=== PATIENT | male | born 1950 | race Caucasian/White ===

== ENCOUNTER 2022-01-28 07:40 | Inpatient (IN) ==
[~2022-01-28 07:40] MED LIST: Famotidine 20 MG/2 ML VIAL IVP ONE; Ringers Solution, Lactated 1,000 ML IVC ONE
[2022-01-28] MEDS ORDERED: Acetaminophen IV 1,000 MG/100 ML BAG IVPB ONE (07:47)
[2022-01-28] MEDS ORDERED: CeFAZolin Syr 2,000MG/20 ML 2,000 MG/20 ML SYRINGE IVPB ONE (08:03)
[2022-01-28] MEDS ORDERED: Ondansetron 4 MG/2 ML VIAL IVP PRN (08:24)
[2022-01-28] MEDS ORDERED: Naloxone 0.4 MG/ML INJ IVP PRN ×2 (08:24→12:02)
[2022-01-28] MEDS ORDERED: Albuterol 2.5 MG/3 ML NEBULIZER IH PRN (08:24)
[2022-01-28] MEDS ORDERED: Nitroglycerin 0.4 MG TAB.SUBL SL PRN (08:24)
[2022-01-28] MEDS ORDERED: *HR* FentaNYL (PF) 100 MCG/2 ML VIAL ONE (08:34)
[2022-01-28] MEDS ORDERED: *HR* Propofol 200 MG/20 ML VIAL IVP ONE ×2 (08:34→10:25)
[2022-01-28] MEDS ORDERED: Ondansetron 4 MG/2 ML VIAL ONE (08:35)
[2022-01-28] MEDS ORDERED: Lidocaine -MPF 2% 5 ML VIAL ONE (08:35)
[2022-01-28] MEDS ORDERED: *HR* Rocuronium Bromide 50 MG/5 ML VIAL ONE ×2 (08:35→09:19)
[2022-01-28] MEDS ORDERED: *HR* Vasopressin 20 UNIT/ML VIAL ONE (08:40)
[2022-01-28] MEDS ORDERED: Sugammadex Sodium 200 MG/2 ML VIAL IV ONE (09:48)
[2022-01-28] MEDS ORDERED: *HR* HYDROMORPHONE 2 MG/ML VIAL ONE (10:27)
[2022-01-28] MEDS: *HR* FentaNYL (PF) 100 MCG/2 ML VIAL IVP PRN ×2 (11:06→11:19)
[2022-01-28] MEDS: 0.9 % Sodium Chloride 1,000 ML IVC SCH (12:38)
[2022-01-28] MEDS: Ketorolac 30 MG/ML VIAL IVP SCH ×2 (12:38→18:41)
[2022-01-28] MEDS: *HR* HYDROcodone/Acet 5/325 mg TABLET PO PRN ×2 (13:36→19:54)
[2022-01-28] MEDS: Gabapentin 300 MG CAPSULE PO SCH ×2 (14:27→19:53)
[2022-01-28] MEDS: *HR* Heparin 5,000 UNIT/ML VIAL SQ SCH ×2 (14:27→21:44)
[2022-01-28] MEDS ORDERED: Amiodarone Premix 150 MG/100 ML BAG IVPB ONE (15:40)
[2022-01-28] MEDS: Ipratropium/Albuterol Neb 3 ML IH SCH ×3 (15:58→20:47)
[2022-01-28] MEDS ORDERED: Amiodarone Premix 360 MG/200 ML BAG IVC ONE (16:00)
[2022-01-28] MEDS: Famotidine 20 MG TABLET PO SCH (19:53)
[2022-01-28] MEDS: Sennosides/Docusate Sodium TABLET PO SCH (19:54)
[2022-01-28] MEDS: Amiodarone Premix 360 MG/200 ML BAG IVC SCH (21:44)
[2022-01-29] MEDS: Ketorolac 30 MG/ML VIAL IVP SCH ×5 (00:04→23:08)
[2022-01-29] MEDS: Ipratropium/Albuterol Neb 3 ML IH SCH ×7 (00:28→23:53)
[2022-01-29] MEDS: *HR* Heparin 5,000 UNIT/ML VIAL SQ SCH ×3 (05:07→20:27)
[2022-01-29] MEDS: 0.9 % Sodium Chloride 1,000 ML IVC SCH (05:07)
[2022-01-29 06:40] LABS: Mean Platelet Volume 11.6 fL (9.4-12.4); Red Cell Distribution Width 12.5 % (11.5-14.5)
[2022-01-29 06:42] LABS: Hematocrit 38.1 % (37.5-50.1); Hemoglobin 12.7 g/dL (12.9-16.9); Mean Corpuscular HGB Conc 33.3 g/dL (31.6-35.5); Mean Corpuscular Hemoglobin 31.4 pg (28.0-33.3); Mean Corpuscular Volume 94.1 fL (83.0-100.0); Red Blood Count 4.05 M/mcL (4.19-5.50); White Blood Count 9.2 K/mcL (4.3-11.1)
[2022-01-29 07:07] LABS: % Iron Saturation 15 % (20-55); BUN/Creatinine Ratio 20 (6-26); Blood Urea Nitrogen 17 mg/dL (8-23); Calcium 8.1 mg/dL (8.6-10.3); Carbon Dioxide 27 mEq/L (23-29); Chloride 104 mEq/L (98-107); Glucose 174 mg/dL (70-105); Iron 38 mcg/dL (65-175); Magnesium 1.8 mg/dL (1.6-2.6); Osmolality,Calculated 290 (280-300); Potassium 3.8 mEq/L (3.5-5.1); Sodium 137 mEq/L (136-145); Transferrin 187 mg/dL (203-362)
[2022-01-29] MEDS: Famotidine 20 MG TABLET PO SCH ×2 (09:00→20:27)
[2022-01-29] MEDS: Gabapentin 300 MG CAPSULE PO SCH ×3 (09:01→20:27)
[2022-01-29] MEDS: Sennosides/Docusate Sodium TABLET PO SCH ×2 (09:01→20:26)
[2022-01-29] MEDS: Amiodarone Premix 360 MG/200 ML BAG IVC SCH (10:00)
[2022-01-29] MEDS ORDERED: [UNRECOGNIZED DRUG - OTHER] IX ONE (10:45)
[2022-01-29] MEDS ORDERED: SODIUM CHLORIDE IX ONE (10:45)
[2022-01-29] MEDS ORDERED: TALC IX ONE (10:45)
[2022-01-29] MEDS ORDERED: LOK IX ONE (10:45)
[2022-01-29] MEDS: *HR* Amiodarone 200 MG TABLET PO SCH (11:16)
[2022-01-30 03:18] LABS: Hemoglobin 12.5 g/dL (12.9-16.9); Mean Platelet Volume 11.3 fL (9.4-12.4)
[2022-01-30 03:20] LABS: Hematocrit 37.4 % (37.5-50.1); Immature Platelets 8.5 % (1.1-6.1); Mean Corpuscular HGB Conc 33.4 g/dL (31.6-35.5); Mean Corpuscular Hemoglobin 31.6 pg (28.0-33.3); Mean Corpuscular Volume 94.4 fL (83.0-100.0); Red Blood Count 3.96 M/mcL (4.19-5.50); Red Cell Distribution Width 12.6 % (11.5-14.5); White Blood Count 6.9 K/mcL (4.3-11.1)
[2022-01-30 03:29] LABS: BUN/Creatinine Ratio 18 (6-26); Blood Urea Nitrogen 14 mg/dL (8-23); Carbon Dioxide 27 mEq/L (23-29); Chloride 106 mEq/L (98-107); Glucose 155 mg/dL (70-105); Magnesium 1.9 mg/dL (1.6-2.6); Osmolality,Calculated 290 (280-300); Potassium 4.5 mEq/L (3.5-5.1); Sodium 138 mEq/L (136-145)
[2022-01-30] MEDS: Ipratropium/Albuterol Neb 3 ML IH SCH ×6 (04:00→23:13)
[2022-01-30] MEDS: *HR* Heparin 5,000 UNIT/ML VIAL SQ SCH ×3 (05:12→20:19)
[2022-01-30] MEDS: Ketorolac 30 MG/ML VIAL IVP SCH ×3 (05:13→17:24)
[2022-01-30] MEDS: *HR* HYDROcodone/Acet 5/325 mg TABLET PO PRN ×2 (05:14→20:09)
[2022-01-30] MEDS: *HR* Amiodarone 200 MG TABLET PO SCH (08:09)
[2022-01-30] MEDS: Famotidine 20 MG TABLET PO SCH ×2 (08:10→20:10)
[2022-01-30] MEDS: Gabapentin 300 MG CAPSULE PO SCH ×3 (08:10→20:09)
[2022-01-30] MEDS: Sennosides/Docusate Sodium TABLET PO SCH ×2 (08:10→20:10)
[2022-01-30] MEDS: Ondansetron 4 MG/2 ML VIAL IVP PRN (08:34)
[2022-01-31] MEDS: Ondansetron 4 MG/2 ML VIAL IVP PRN (00:51)
[2022-01-31] MEDS: Ketorolac 30 MG/ML VIAL IVP SCH ×4 (00:52→17:27)
[2022-01-31 02:25] LABS: Hematocrit 36.8 % (37.5-50.1); Hemoglobin 12.4 g/dL (12.9-16.9); Immature Platelets 6.6 % (1.1-6.1); Mean Corpuscular HGB Conc 33.7 g/dL (31.6-35.5); Mean Corpuscular Hemoglobin 31.9 pg (28.0-33.3); Mean Corpuscular Volume 94.6 fL (83.0-100.0); Mean Platelet Volume 10.9 fL (9.4-12.4); Red Blood Count 3.89 M/mcL (4.19-5.50); Red Cell Distribution Width 12.9 % (11.5-14.5); White Blood Count 4.9 K/mcL (4.3-11.1)
[2022-01-31 02:42] LABS: BUN/Creatinine Ratio 21 (6-26); Blood Urea Nitrogen 14 mg/dL (8-23); Carbon Dioxide 26 mEq/L (23-29); Chloride 105 mEq/L (98-107); Glucose 126 mg/dL (70-105); Magnesium 1.7 mg/dL (1.6-2.6); Osmolality,Calculated 286 (280-300); Potassium 4.8 mEq/L (3.5-5.1); Sodium 137 mEq/L (136-145)
[2022-01-31] MEDS: Ipratropium/Albuterol Neb 3 ML IH SCH ×6 (04:38→23:03)
[2022-01-31] MEDS: *HR* Heparin 5,000 UNIT/ML VIAL SQ SCH ×3 (06:03→20:28)
[2022-01-31] MEDS: Famotidine 20 MG TABLET PO SCH ×2 (08:22→20:28)
[2022-01-31] MEDS: Gabapentin 300 MG CAPSULE PO SCH ×3 (08:22→20:28)
[2022-01-31] MEDS: Sennosides/Docusate Sodium TABLET PO SCH ×2 (08:22→20:29)
[2022-01-31] MEDS: *HR* Amiodarone 200 MG TABLET PO SCH (08:22)
[2022-02-01] MEDS: Ketorolac 30 MG/ML VIAL IVP SCH ×3 (00:13→12:08)
[2022-02-01] MEDS: Ipratropium/Albuterol Neb 3 ML IH SCH ×6 (03:29→23:21)
[2022-02-01] MEDS: *HR* Heparin 5,000 UNIT/ML VIAL SQ SCH ×3 (05:26→20:01)
[2022-02-01] MEDS: Famotidine 20 MG TABLET PO SCH ×2 (07:49→20:01)
[2022-02-01] MEDS: Sennosides/Docusate Sodium TABLET PO SCH ×2 (07:49→20:01)
[2022-02-01] MEDS: *HR* Amiodarone 200 MG TABLET PO SCH (07:49)
[2022-02-01] MEDS: Ondansetron 4 MG/2 ML VIAL IVP PRN ×2 (07:49→18:25)
[2022-02-01] MEDS: Gabapentin 300 MG CAPSULE PO SCH ×3 (07:49→20:01)
[2022-02-01] MEDS ORDERED: 0.9 % Sodium Chloride 1,000 ML IVC ONE (14:30)
[2022-02-01] MEDS: Albumin Human 5% 12.5 GM/250 ML IV.SOLN IVC SCH ×2 (18:09→20:02)
[2022-02-01] MEDS: *HR* HYDROcodone/Acet 5/325 mg TABLET PO PRN (20:01)
[2022-02-02] MEDS: Ipratropium/Albuterol Neb 3 ML IH SCH ×6 (03:55→23:03)
[2022-02-02] MEDS: *HR* Heparin 5,000 UNIT/ML VIAL SQ SCH ×3 (05:23→21:12)
[2022-02-02] MEDS: Famotidine 20 MG TABLET PO SCH ×2 (10:00→21:12)
[2022-02-02] MEDS: Gabapentin 300 MG CAPSULE PO SCH ×3 (10:00→21:12)
[2022-02-02] MEDS: *HR* Amiodarone 200 MG TABLET PO SCH (10:01)
[2022-02-02] MEDS: Sennosides/Docusate Sodium TABLET PO SCH ×2 (10:01→21:11)
[2022-02-02] MEDS: Acetaminophen 325 MG TABLET PO PRN (14:10)
[2022-02-02] MEDS ORDERED: Ipratropium/Albuterol Neb 3 ML ONE (20:14)
[2022-02-03] MEDS: Ipratropium/Albuterol Neb 3 ML IH SCH ×3 (04:37→11:08)
[2022-02-03] MEDS: *HR* Heparin 5,000 UNIT/ML VIAL SQ SCH ×3 (05:44→20:17)
[2022-02-03 06:31] LABS: BUN/Creatinine Ratio 23 (6-26); Blood Urea Nitrogen 19 mg/dL (8-23); Calcium 8.3 mg/dL (8.6-10.3); Carbon Dioxide 28 mEq/L (23-29); Chloride 99 mEq/L (98-107); Glucose 137 mg/dL (70-105); Osmolality,Calculated 282 (280-300); Potassium 4.6 mEq/L (3.5-5.1); Sodium 134 mEq/L (136-145)
[2022-02-03] MEDS: *HR* Amiodarone 200 MG TABLET PO SCH (08:56)
[2022-02-03] MEDS: Sennosides/Docusate Sodium TABLET PO SCH ×2 (08:56→20:03)
[2022-02-03] MEDS: Famotidine 20 MG TABLET PO SCH ×2 (08:57→20:03)
[2022-02-03] MEDS: Gabapentin 300 MG CAPSULE PO SCH (08:57)
[2022-02-03] MEDS: Metoclopramide 10 MG/2 ML VIAL IVP SCH ×2 (12:29→18:06)
[2022-02-03] MEDS: polyethylene glycoL 3350 17 GM POWD.PACK PO SCH (12:45)
[2022-02-03] MEDS: Albuterol 2.5 MG/3 ML NEBULIZER IH SCH ×2 (15:26→22:38)
[2022-02-03] MEDS: Acetaminophen 325 MG TABLET PO PRN (16:51)
[2022-02-03] MEDS: *HR* HYDROcodone/Acet 5/325 mg TABLET PO PRN (20:02)
[2022-02-04] MEDS: Metoclopramide 10 MG/2 ML VIAL IVP SCH ×5 (01:05→23:00)
[2022-02-04] MEDS: Albuterol 2.5 MG/3 ML NEBULIZER IH SCH ×4 (04:06→22:27)
[2022-02-04] MEDS: *HR* Heparin 5,000 UNIT/ML VIAL SQ SCH ×3 (04:56→20:39)
[2022-02-04] MEDS: *HR* HYDROcodone/Acet 5/325 mg TABLET PO PRN (05:14)
[2022-02-04 05:41] LABS: Hematocrit 36.6 % (37.5-50.1); Hemoglobin 12.7 g/dL (12.9-16.9); Mean Corpuscular HGB Conc 34.7 g/dL (31.6-35.5); Mean Corpuscular Volume 92.2 fL (83.0-100.0); Mean Platelet Volume 11.4 fL (9.4-12.4); Platelet Count 154 K/mcL (140-400); Red Blood Count 3.97 M/mcL (4.19-5.50); Red Cell Distribution Width 12.5 % (11.5-14.5); White Blood Count 9.6 K/mcL (4.3-11.1)
[2022-02-04] MEDS: polyethylene glycoL 3350 17 GM POWD.PACK PO SCH (09:07)
[2022-02-04] MEDS: Famotidine 20 MG TABLET PO SCH ×2 (09:07→20:38)
[2022-02-04] MEDS: *HR* Amiodarone 200 MG TABLET PO SCH (09:07)
[2022-02-04] MEDS: Sennosides/Docusate Sodium TABLET PO SCH ×2 (09:08→20:38)
[2022-02-05] MEDS: Albuterol 2.5 MG/3 ML NEBULIZER IH SCH ×2 (04:22→10:32)
[2022-02-05] MEDS: Metoclopramide 10 MG/2 ML VIAL IVP SCH ×2 (05:08→12:52)
[2022-02-05] MEDS: *HR* Heparin 5,000 UNIT/ML VIAL SQ SCH ×2 (05:08→12:52)
[2022-02-05] MEDS: Sennosides/Docusate Sodium TABLET PO SCH (08:33)
[2022-02-05] MEDS: Famotidine 20 MG TABLET PO SCH (08:34)
[2022-02-05] MEDS: *HR* Amiodarone 200 MG TABLET PO SCH (08:34)
[2022-02-05] MEDS: polyethylene glycoL 3350 17 GM POWD.PACK PO SCH (08:36)
[2022-02-05 11:51] VITALS: BP 127/72; TEMP 97.5
[2022-02-05 13:10] VITALS: O2SAT 96
[2022-02-05 14:25] VITALS: PULSE 76
== END 2022-02-05 14:25 | disposition home or self-care (01) | DRG 163 ==
LOC: SAMDAY 07:40 → 2NNU 08:21
PROVIDERS: ADMIT Thoracic Surgery (Cardiothoracic Vascular Surgery); ATTEND Thoracic Surgery (Cardiothoracic Vascular Surgery)